=== PATIENT | female | born 1955 | race Caucasian/White ===

== ENCOUNTER → 2023-09-11 06:30 | Day surgery (SDC) | payer OTHER, SELFPAY | LOC: GI 06:30 | PROVIDERS: ATTENDING PHYSICIAN Internal Medicine Gastroenterology | DX: D12.2 Benign neoplasm of ascending colon (principal); D12.3 Benign neoplasm of transverse colon; K63.89 Other specified diseases of intestine; Z86.010 Personal history of colon polyps | CPT/HCPCS: 45385; 45381; 88305 ==

== ENCOUNTER 2024-12-30 06:25 | Day surgery (SDC) | payer OTHER, SELFPAY | END 2024-12-30 10:42 | disposition home or self-care (01) | LOC: GI 06:25 | PROVIDERS: ATTENDING PHYSICIAN Internal Medicine Gastroenterology | DX: Z12.11 Encounter for screening for malignant neoplasm of colon (principal); K63.89 Other specified diseases of intestine; D12.2 Benign neoplasm of ascending colon; D12.3 Benign neoplasm of transverse colon; Z86.0101 Personal history of adenomatous and serrated colon polyps | CPT/HCPCS: 45385; 88305 ==

== ENCOUNTER 2025-01-27 11:29 | Emergency (ER) | payer OTHER, SELFPAY ==
[2025-01-27 11:40] VITALS: BP 105/58
[2025-01-27 14:29] LABS: Hematocrit 35.2 % (37.0-47.0); Hemoglobin 11.6 g/dL (12.0-16.0); Mean Corp Hgb Conc. 33.0 g/dL (33.0-37.0); Mean Corpuscular Volume 89.3 fL (81.0-99.0); Nucleated Red Blood Cells % 0 %; Platelet Count 166 10^3/uL (130-400); Red Cell Dist. Width 12.3 % (11.5-14.5)
[2025-01-27 14:46] LABS: ALT (SGPT) 22 U/L (0-35); AST (SGOT) 34 U/L (14-36); Albumin 4.0 g/dl (3.5-5.0); Alkaline Phosphatase 51 U/L (38-126); Blood Urea Nitrogen 27 mg/dl (7-17); Calcium 9.3 mg/dl (8.4-10.2); Carbon Dioxide 32 mmol/L (22-30); Chloride 104 mmol/L (98-107); Glucose 88 mg/dl (70-99); Magnesium 2.1 mg/dl (1.6-2.3); Potassium 4.3 mmol/L (3.5-5.1); Sodium 138 mmol/L (135-145); Total Protein 6.4 g/dl (6.3-8.2); eGFR > 60.00
--- NOTE | 2025-01-27 14:50 | ED.GENMED ---
History of Present Illness
General
Chief Complaint: Heart Rate Problem
Time Seen by Provider: 01/27/25 13:25
History of Present Illness
History of Present Illness:
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 Patient reports that she chronically has palpitations, however felt that they have been worsening the past
several days. She tried her nadolol without significant relief. Denies associated shortness of breath or chest pain. Denies any recent adjustment in medications. Denies any fever or cough. Patient follows with cardiology, last seen within the
year. Denies abdominal pain or GI symptoms. Denies weakness. Denies additional acute medical complaints
Phy Exam
Physical Exam
Physical Exam:
General: Well-appearing, no clinical signs of dehydration, nontoxic and in no acute distress
HEENT: protecting airway
Neck: appears supple
CV: Normal heart rate, regular rhythm
Resp: No accessory muscle use, no increased work of breathing, lungs clear to auscultation bilaterally
Abd: No distention
Extremities: No deformities, no swelling
Neuro: alert, no focal neurologic deficit
: deferred
Rectal: deferred
Psych: Normal affect
Skin: Intact
Course
Orders/Labs/Results
Orders:
Orders
01/27/25 11:30
EKG [Electrocardiogram (*1)] Urgent
Reason for Study: Palpitations
01/27/25 11:31
EKG- Treatment ONCE
01/27/25 14:21
Complete Blood Count/With Diff Urgent
Comprehensive Metabolic Panel Urgent
Magnesium Urgent
01/27/25 14:50
Electrocardiogram (*1) Urgent
EKG- Treatment ONCE
Abnormal Lab Results
01/27/25
14:21
RBC 3.94 L 10^6/uL
(4.20-5.40)
Hgb 11.6 L g/dL
(12.0-16.0)
Hct 35.2 L %
(37.0-47.0)
Absolute Lymphs (auto) 1.0 L 10^3/uL
(1.2-3.4)
Lymphocytes % 19.2 L %
(20.5-51.1)
Monocytes % 10.6 H %
(1.7-9.3)
Carbon Dioxide 32 H mmol/L
(22-30)
BUN 27 H mg/dl
(7-17)
01/27/25 14:21
01/27/25 14:21
Vital Signs
Initial and Last Documented VS:
Initial Vital Signs
Temp Pulse Resp BP Pulse Ox
97.7 F 69 18 105/58 100
01/27/25 11:40 01/27/25 11:40 01/27/25 11:40 01/27/25 11:40 01/27/25 11:40
Last Documented Vital Signs
Temp Pulse Resp BP Pulse Ox
97.7 F 65 11 105/58 99
01/27/25 11:40 01/27/25 14:00 01/27/25 14:00 01/27/25 11:40 01/27/25 14:53
MDM/Problems Addressed
MDM/Problems Addressed:
69-year-old female with prior history of PVCs presenting to the emergency department for concern of palpitations. Vital signs on arrival are normal.
On exam patient is resting comfortably, no acute distress or discomfort. While evaluating patient, patient did have a PVC, became symptomatic. Suspect etiology of symptoms. Patient is not having multiple runs of PVCs in a row. EKG is sinus
without acute evidence of ischemia or arrhythmia. Without present concern for significant acute pathology. Plan for screening laboratory analysis. Patient otherwise hemodynamically stable.
15:20 - Patient's labs are unremarkable without any electrolyte derangements. Repeat EKG is unchanged. At this time feel stable for discharge with outpatient cardiology follow-up. May need repeat Holter monitor, last one was completed about 8
years ago. Return precautions discussed and patient verbalized understanding.
*Pulse Oximetry
SaO2: 99
Oxygen Mode of Delivery: Room air
Patient hypoxic: no
*EKG
Interpreted by ED Provider?: Yes
EKG Intrepretation Date: 01/27/25
EKG Intrepretation Time: 14:51
Interpretation: normal
Heart Rate: 65
Rate: normal
Rhythm: sinus
[place]: normal axis
Interval: normal interval
QRS Pattern: normal QRS
Ischemia: no ischemia
*Critical Care Note
Total Time (30-74mins, 75-104mins- exclusive of procedures): Not Applicable
ED Attending Note
-
Portions of this chart may have been created with voice recognition software.� Occasional wrong word or��sound alike� substitutions may have occurred due to the inherent limitations of voice recognition software.
Discharge Plan
Departure
Patient Disposition: Home (Routine Discharge)
Date of Disposition: 01/27/25
Time of Disposition: 15:26
Patient with high blood pressure during this ER visit?: No
Condition: Good
Discharge Problem:
Palpitations
Instructions: Ventricular premature beats, Palpitations (DC)
Referrals:
Jovanny Sousa MD [Active, Cardiology]
Sheila Mina CRNP [Family Provider, Family Practice]
Activity Restrictions/Additional Instructions:
You were seen in the emergency department for palpitations
You were found to have a reassuring EKG and laboratory analysis
Please follow-up closely with your primary care physician as well as the power regulator.
Return to the emergency department for any worsening of your symptoms, or any development of chest pain, difficulty breathing, abdominal pain with persistent vomiting and inability to tolerate food or liquid by mouth (concern for dehydration),
weakness, headache or confusion, fever greater than 100.4, or any additional symptoms that are concerning to you.
Thank you for choosing [facility].
Interventions
Interventions:
*Risk Screen - Suicide Last Done: 01/27/25 11:42
*Neglect/Abuse Screening Last Done: 01/27/25 14:12
*ED- Fall Risk Assessment Last Done: 01/27/25 14:12
ED- Cardiac Assessment Last Done: 01/27/25 14:11
ED- Pulmonary Assessment Last Done: 01/27/25 14:11
Discharge Date and Time
Print Language: MAURITANIAN
== END 2025-01-27 16:15 | disposition home or self-care (01) ==
LOC: EMR 11:29
PROVIDERS: EMERGENCY PHYSICIAN Student in an Organized Health Care Education/Training Program; FAMILY PHYSICIAN Nurse Practitioner
DX: R00.2 Palpitations (principal)
CPT/HCPCS: 99284; 80053; 83735; 85025; 93005

== ENCOUNTER → 2025-03-24 10:03 | Outpatient (REF) | payer OTHER, SELFPAY | LOC: RCS 10:03 | PROVIDERS: ATTENDING PHYSICIAN Nurse Practitioner; FAMILY PHYSICIAN Nurse Practitioner | DX: R00.2 Palpitations (principal); R00.0 Tachycardia, unspecified | CPT/HCPCS: 93306 ==